=== PATIENT | female | born 1980 | race Caucasian/White ===

== ENCOUNTER 2019-12-09 11:36 | Emergency (ER) | payer BC, MEDICAID, SELFPAY ==
--- NOTE | ~2019-12-09 | XR_ITS ---
EXAMINATION: XR chest 2V EXAM DATE: 12/09/2019 12:17 INDICATION: Cough and wheezing. Low-grade fever. TECHNIQUE: Frontal and lateral projections of the chest obtained and reviewed. Comparison is made to prior examination from 03/01/2016. FINDINGS: The lungs are clear. There are no pleural effusions. The cardiomediastinal silhouette is within normal limits. There is no pneumothorax suspected. The bones and soft tissues are unremarkab le. There are cholecystectomy clips. IMPRESSION: Normal chest x-ray exam. Reviewed, dictated and finalized at location B. LITY ENGINEER IMPRESSION: Normal chest x-ray exam.
[2019-12-09 11:47] VITALS: BP 124/72; PULSE 118; RESP 20; TEMP 37.2; O2SAT 100
--- NOTE | 2019-12-09 12:01 | ED.GENADULT ---
HPI - General Adult General Chief complaint: Upper Respiratory Infection Stated complaint: congestion/cough Time Seen by Provider: 12/09/19 12:02 Source: patient and RN notes reviewed Mode of arrival: ambulatory Limitations: no limitations History of Present Illness HPI narrative: 39-year-old female presents with complaints of dry cough, congestion, wheezing, and low grade fever for the past 3 days. Cough is persistent, worse when she lies down. Intermittently productive green phlegm. Feels ill. Denies high fever, highest 100F, axilla with intermittent chills. Sudafed and Mucinex with little relief. Exacerbating factors consist of smoke exposure. No nausea, vomiting, and abdominal pain. Denies chest pain, dyspnea, coughing up blood, difficulty swallowing, jaw pain, dental pain, facial pain, foreign body sensation, and rash. Ngoc denies being , LMP 1 month ago and tubal ligation. Some parts of this dictation were generated by voice recognition software and may contain typographical and/or grammatical inaccuracies. Related Data Home Medications Medication Instructions Recorded Confirmed naproxen-pseudoephedrine [Sudafed tablet PO 12/09/19 Sinus 12Hr Pressr-Pain] Allergies Allergy/AdvReac Type Severity Reaction Status Date / Time No Known Allergies Allergy Verified 12/09/19 11:53 Review of Systems Review of Systems: Narrative: CONSTITUTIONAL: Complains of low-grade fever, chills. Denies sweats. EYES: Denies visual changes, redness, discharge. ENT: Complains of rhinorrhea, congestion. Denies sore throat, otalgia. CARDIOVASCULAR: Denies chest pain, palpitations, edema. RESPIRATORY: Denies dyspnea. Complains of wheezing, persistent dry cough, intermittent productive cough. GASTROINTESTINAL: Denies abdominal pain, nausea, vomiting, diarrhea. GENITOURINARY: Denies dysuria, hematuria, abnormal discharge. SKIN: SKIN: Denies rash or itching. MUSCULOSKELETAL: Denies acute back pain, joint pain, or myalgia. NEUROLOGIC: Denies numbness or focal weakness. PSYCHIATRIC: Denies anxiety or depression. [facility] Past Medical History Medical History (Updated 12/09/19 @ 12:53 by BENNY Orosco) No significant past medical history Surgical History Surgical History (Updated 12/09/19 @ 12:53 by BENNY Orosco) H/O section X4 History of cholecystectomy History of tubal ligation Family History Family History Father Hypertension Mother Family history of diabetes mellitus in first degree relative Hypertension Sibling Hypertension Other Diabetes mellitus Social History Social History (Updated 12/09/19 @ 12:54 by BENNY Orosco) Smoking status: Current every day smoker Second hand tobacco smoke exposure: No Alcohol intake: current Substance use: never Living arrangements: with family Gender identity (if verbalized by the patient): Female Comments At time of signature, agree with nurse past medical, surgical, social, and family history. There is no relevant family history pertinent to the presenting complaint. Exam Narrative: Exam Narrative: GENERAL: This is a well-nourished, well-developed patient, in no apparent distress. Talks in full sentences and ambulates with steady gait without dyspnea. HEAD: normocephalic, atraumatic. EYES: PERRL. Sclera clear/white. Vision is grossly intact. EARS: External ears normal, auditory canals clear and without drainage, TMs normal without perforation. Hearing grossly intact. NOSE: External nose normal with no obvious nasal discharge, nares with moderat redness and enlarged turbinates, no rhinorrhea. THROAT: Mucous membranes moist, posterior pharynx with PND, mild erythema, no exudate, and normal tonsils. No drainage, no concern for Peritonsillar abscess. No drooling, trismus, or neck swelling. NECK: Neck supple, non-tender without lymphadenopathy, mas
[2019-12-09 12:38] VITALS: PULSE 90
== END 2019-12-09 12:37 | disposition home or self-care (01) ==
PROVIDERS: Emergency Provider Nurse Practitioner Family; PCP Emergency Medicine
DX: J40 Bronchitis, not specified as acute or chronic (principal)
CPT/HCPCS: 71046; 99213; G0463

== ENCOUNTER 2020-08-15 08:24 | Outpatient (CLI) | payer BC, MEDICAID, SELFPAY ==
--- NOTE | ~2020-08-15 | MR_ITS ---
EXAMINATION: MR lumbar spine wo con DATE: 08/15/2020 09:38 INDICATION: Lumbago with sciatica. TECHNIQUE: Magnetic resonance imaging (MRI) of the lumbar spine was performed without intravenous con trast. Sequences included sagittal T2-weighted FSE, sagittal T2-weighted FS FSE, sagittal T1-weighted FSE, and axial T2-weighted FSE. COMPARISON: Lumbar spine radiographs 08/05/2019 FINDINGS: There is 13 degrees dextroscoliosis of thoracolumbar spine. Vertebral body heights and inte rvertebral disc heights are normal. The distal spinal cord signal intensity is normal. The conus medu llaris is at L1. The following disc levels are specifically discussed: L1-L2: The disc does not extend beyond the endplate margin. There is no facet joint osteoarthritis. T here is no neural foraminal stenosis. There is no central canal stenosis. L2-L3: The disc does not extend beyond the endplate margin. There is no facet joint osteoarthritis. T here is no neural foraminal stenosis. There is no central canal stenosis. L3-L4: The disc is mildly bulging. There is mild bilateral facet joint osteoarthritis. There is mild bilateral neural foraminal stenosis. There is no central canal stenosis. L4-L5: The disc is mildly bulging. There is mild bilateral facet joint osteoarthritis. There is mild bilateral neural foraminal stenosis. There is no central canal stenosis. L5-S1: The disc is bulging with superimposed left central extrusion. There is mild right facet joint osteoarthritis. There is mild left neural foraminal stenosis. There is mild central canal stenosis. IMPRESSION: 1. Mild lumbar spondylosis. Reviewed, dictated and finalized at location A. IMPRESSION: 1. Mild lumbar spondylosis.
== END 2020-08-15 08:25 | disposition home or self-care (01) ==
PROVIDERS: PCP Emergency Medicine; Visit Provider Emergency Medicine
DX: M54.42 Lumbago with sciatica, left side (principal); M47.896 Other spondylosis, lumbar region
CPT/HCPCS: 72148

== ENCOUNTER 2021-12-24 16:15 | Emergency (ER) | payer BC, MEDICAID, SELFPAY ==
[2021-12-24 16:22] VITALS: BP 109/79; PULSE 88; RESP 18; TEMP 36.5; O2SAT 100
--- NOTE | 2021-12-24 16:55 | ED.FEMALEGU ---
HPI - Female Genitourinary General Chief complaint: Urogenital-Female Stated complaint: Vaginal discharge Time Seen by Provider: 12/24/21 16:43 Source: patient and RN notes reviewed Mode of arrival: ambulatory Limitations: no limitations History of Present Illness HPI Narrative: Patient presents today with a 3-day history of burning pain with intercourse, malodorous brownish vaginal discharge. Denies any urinary symptoms. LMP was 1 week ago. Patient states that she knows she has bacterial vaginosis. States she has had it multiple times in the past and she has previously called her MANUFACTURER AGENT's office and has been called in Flagyl for this complaint. Her MANUFACTURER AGENT has retired and she cannot get in with his replacement for the next couple of months. She does not have any concerns for sexually transmitted infections and is not interested and getting tested. MD elicited complaint: vaginal discharge and other (Dyspareunia) Related Data Allergies Allergy/AdvReac Type Severity Reaction Status Date / Time No Known Allergies Allergy Verified 12/09/19 11:53 Review of Systems Review of Systems: CONSTITUTIONAL: Denies body aches, fever, chills, or sweats. EYES: Denies visual changes, redness, or discharge. ENT: Denies rhinorrhea, congestion, sore throat, or otalgia. CARDIOVASCULAR: Denies chest pain, palpitations, or edema. RESPIRATORY: Denies cough or dyspnea. GASTROINTESTINAL: Denies abdominal pain, nausea, vomiting, or diarrhea. GENITOURINARY: Denies dysuria or hematuria.+ Dyspareunia, vaginal discharge SKIN: Denies rash, itching, or wounds. MUSCULOSKELETAL: Denies back pain, joint pain, or myalgia. NEUROLOGIC: Denies headache, numbness, tingling, or weakness. PSYCH: Denies depression or anxiety. [facility] Past Medical History Medical History No significant past medical history Surgical History Surgical History H/O section X4 History of cholecystectomy History of tubal ligation Family History Family History Father Hypertension Mother Family history of diabetes mellitus in first degree relative Hypertension Sibling Hypertension Other Diabetes mellitus Social History Social History Smoking status: Current every day smoker Second hand tobacco smoke exposure: No Alcohol intake: current Substance use: never Gender identity (if verbalized by the patient): Female Comments At time of signature, I have reviewed and agree with nursing past medical, surgical, social and family history unless otherwise noted. Please see nursing chart for further information. There is no relevant family history pertinent to the presenting complaint Exam Narrative: GENERAL: Well-appearing, well-nourished, and in no acute distress. HEAD: Normocephalic, atraumatic. EYES: EOMI. No redness or drainage. Conjunctivae normal. ENT: Mucous membranes pink and moist. NECK: Normal AROM. CHEST: No respiratory distress. :Vaginal pineda appear normal. Moderate amount of thin old blood in vagina. Cervix normal. MUSCULOSKELETAL: No bony tenderness. EXTREMITIES: Normal range of motion. No edema. SKIN: Warm, dry, no rash. Capillary refill normal. Normal skin turgor. NEURO: No focal deficits. Alert and oriented x3. Gait steady. PSYCH: Normal affect. No signs of depression or anxiety. Course Course Emergency Course: Will treat patient with flagyl as she states her current symptoms are similar to previous episodes of bacterial vaginosis. States she gets yeast infections from the Flagyl, so will give her 1 tablet of Diflucan. I have given her a referral to a new MANUFACTURER AGENT for follow-up, especially if these medications do not help with her dyspareunia. Level of Care: Express Care Visit Vital Sign
== END 2021-12-24 17:08 | disposition home or self-care (01) ==
PROVIDERS: Emergency Provider Nurse Practitioner; PCP Obstetrics & Gynecology
DX: N89.8 Other specified noninflammatory disorders of vagina (principal); F17.200 Nicotine dependence, unspecified, uncomplicated
CPT/HCPCS: 81003; 99213; G0463

== ENCOUNTER 2022-04-04 19:18 | Emergency (ER) | payer BC, MEDICAID, SELFPAY ==
[2022-04-04 19:24] VITALS: BP 111/55; PULSE 79; RESP 16; TEMP 36.3; O2SAT 79
[2022-04-04 19:25] VITALS: O2SAT 99
--- NOTE | 2022-04-04 20:33 | ED.FEMALEGU ---
HPI - Female Genitourinary General Chief complaint: Urogenital-Female Stated complaint: VAGINAL BURNING Time Seen by Provider: 04/04/22 20:15 Source: patient, RN notes reviewed and old records reviewed Mode of arrival: ambulatory Limitations: no limitations History of Present Illness HPI Narrative: 41-year-old female who presents to [facility] with 1 week duration of vaginal burning with white thick vaginal discharge that is itchy. Patient reports that she has tried Monistat without any improvement in her symptoms. She denies any concern for STDs, denies any frequency or burning with urination, no urgency. Patient reports no fevers, chills, or sweats, denies any nausea, vomiting, or abdominal pain. Patient reports that she has been taking baths lately. MD elicited complaint: vaginal discharge and genital itching Onset (ago): week(s) (1) Vaginal discharge: white and thick/cheesy Related Data Allergies Allergy/AdvReac Type Severity Reaction Status Date / Time No Known Allergies Allergy Verified 04/04/22 19:39 Review of Systems Review of Systems: CONSTITUTIONAL: Denies fever, chills, or sweats. EYES: Denies visual changes, redness, or discharge. ENT: Denies rhinorrhea, congestion, sore throat, or otalgia. CARDIOVASCULAR: Denies chest pain, palpitations, or edema. RESPIRATORY: Denies cough or dyspnea. GASTROINTESTINAL: Denies abdominal pain, nausea, vomiting, or diarrhea. GENITOURINARY: Denies dysuria or hematuria.positive for genitourinary burning with white discharge SKIN: Denies rash or itching. MUSCULOSKELETAL: Denies back pain, joint pain, or myalgia. NEUROLOGIC: Denies headache, numbness, or weakness. PSYCHIATRIC: Denies anxiety or depression. [facility] Past Medical History Medical History (Updated 04/04/22 @ 20:46 by Leigh Ann Manriquez NP) No significant past medical history Vaginal yeast infection Surgical History Surgical History H/O section X4 History of cholecystectomy History of tubal ligation Family History Family History Father Hypertension Mother Family history of diabetes mellitus in first degree relative Hypertension Sibling Hypertension Other Diabetes mellitus Social History Social History Smoking status: Current every day smoker Second hand tobacco smoke exposure: No Alcohol intake: current Substance use: never Gender identity (if verbalized by the patient): Female Comments At time of signature, agree with nursing past medical, surgical, social and family history. There is no relevant family history pertinent to the presenting complaint Exam Narrative: GENERAL: Well-appearing, well-nourished, and in no acute distress. HEAD: Normocephalic, atraumatic. EYES: PERRLA and EOMI. ENT: Nares clear, no rhinorrhea or epistaxis. Mucous membranes moist.TM's normal with good light reflex, throat pink with no lesions or exudates, NECK: Supple.no lymphadenopathy CHEST: Clear to auscultation. No respiratory distress.SAO2 99 % on room air HEART: Regular rate and rhythm. No murmur heard. Normal peripheral pulses. ABDOMEN: Soft, nontender, nondistended, normal active bowel sounds.denies any abdominal pain or any CVA tenderness noted on exam, white thick itchy vaginal discharge, denies any urinary symptoms, past history of vaginal yeast infection EXTREMITIES: Normal range of motion. No edema. SKIN: Warm, dry, no rash. NEURO: No focal deficits. Alert and oriented x3. Course Course Level of Care: Express Care Visit Vital Signs Vital signs: Vital Signs Temperature 36.3 C L 04/04/22 19:24 Pulse Rate 79 04/04/22 19:24 Respiratory Rate 16 04/04/22 19:24 Blood Pressure 111/55 L 04/04/22 19:24 Pulse Oximetry 79 L 04/04/22 19:24 Temperature 36.3 C L 04/04/22 19:24 Pulse Rate 79 04/04/22 19:24
== END 2022-04-04 20:42 | disposition home or self-care (01) ==
PROVIDERS: Emergency Provider Registered Nurse
DX: B37.3 Candidiasis of vulva and vagina (principal); F17.200 Nicotine dependence, unspecified, uncomplicated
CPT/HCPCS: 99213; G0463

== ENCOUNTER 2022-08-10 13:54 | Emergency (ER) | payer BC, MEDICAID, SELFPAY ==
[2022-08-10 14:06] VITALS: BP 135/86; PULSE 99; RESP 16; TEMP 36.6; O2SAT 100
--- NOTE | 2022-08-10 14:37 | ED.GENADULT ---
HPI - General Adult General Chief complaint: Skin/Abscess/Foreign Body Stated complaint: RASH/MOUTH IS PURPLE/SOB/+ COVID History of Present Illness HPI narrative: 42 y/o female. PMHx Cigarette Smoker. Presents to [facility] today with acute complaints of non-productive cough, intermittent dyspnea, and rash post covid 1 week ago. Client reports to have tested Covid positive one week [employer]PER[employer]. -Continued cough, intermittent dyspnea. -No dizziness, chest pain, palpitations, edema. -No wheezing. -No hemoptysis. She reports a generalized rash to her upper and lower extremities, with associated pruritus. -No recent ATB or medication changes. -No open wounds, lesions, or discharge. Related Data Allergies Allergy/AdvReac Type Severity Reaction Status Date / Time No Known Allergies Allergy Verified 08/10/22 14:06 Review of Systems Review of Systems: CONSTITUTIONAL: Denies fever, chills, sweats. EYES: Denies visual changes, redness, discharge. ENT: + congestion. No sore throat, otalgia. CARDIOVASCULAR: Denies chest pain, palpitations, edema. RESPIRATORY: + dyspnea, cough. No wheezing. GASTROINTESTINAL: Denies abdominal pain, nausea, vomiting, diarrhea. GENITOURINARY: Denies dysuria, hematuria, abnormal discharge SKIN: + Extremity rash & itching. MUSCULOSKELETAL: Denies acute back pain, joint pain, or myalgia. NEUROLOGIC: Denies numbness, or focal weakness. PSYCHIATRIC: Denies anxiety or depression. [facility] Past Medical History Medical History No significant past medical history Vaginal yeast infection Surgical History Surgical History H/O section X4 History of cholecystectomy History of tubal ligation Family History Family History Father Hypertension Mother Family history of diabetes mellitus in first degree relative Hypertension Sibling Hypertension Other Diabetes mellitus Social History Social History Smoking status: Current every day smoker Second hand tobacco smoke exposure: No Alcohol intake: current Substance use: never Gender identity (if verbalized by the patient): Female Exam Narrative: GENERAL: This is a well-nourished, well-developed adult, in no apparent distress. HEAD: normocephalic, atraumatic. EYES: PERRL. Sclera clear/white. EARS: External ears normal, auditory canals clear and without drainage, TMs normal. NOSE: External nose normal. Positive Rhinorrhea, no obstruction, nares patent. THROAT: Mucous membranes moist, posterior pharynx is mildly erythematous. No exudates. Uvula midline. Palate soft. No lesions. NECK: Neck supple, non-tender without lymphadenopathy, masses or thyromegaly. CARDIOVASCULAR: Regular rate and rhythm without murmurs, gallops, or rubs. RESPIRATORY: Clear to auscultation. Breath sounds equal bilaterally. No wheezes, rales, or rhonchi. GASTROINTESTINAL: Abdomen soft, non-tender, nondistended. Bowel sounds are active. No guarding. SKIN: warm, intact with no suspicious lesions, good texture and turgor. Fine raised rash to bilateral upper arms and lower legs. Signs of superficial itching at site. No necrotic changes. No deep tissue disturbance or fluctuance. NEURO: Alert, active, and age appropriate. No focal neurologic deficits. EXTREMITIES: Negative. Course Course Level of Care: Express Care Visit Vital Signs Vital signs: Vital Signs Temperature 36.6 C 08/10/22 14:06 Pulse Rate 99 08/10/22 14:06 Respiratory Rate 16 08/10/22 14:06 Blood Pressure 135/86 08/10/22 14:06 Pulse Oximetry 100 08/10/22 14:06 Temperature 36.6 C 08/10/22 14:06 Pulse Rate 99 08/10/22 14:06 Respiratory Rate 16 08/10/22 14:06 Blood Pressure 135/86 08/10/22 14:06 Pulse Oximetry 100
== END 2022-08-10 14:39 | disposition home or self-care (01) ==
PROVIDERS: Emergency Provider Nurse Practitioner Adult Health; PCP Family Medicine
DX: B34.9 Viral infection, unspecified (principal); R21 Rash and other nonspecific skin eruption; F17.200 Nicotine dependence, unspecified, uncomplicated; Z86.16 Personal history of COVID-19
CPT/HCPCS: 99213; G0463

== ENCOUNTER 2022-12-25 17:58 | Emergency (ER) | payer BC, MEDICAID, SELFPAY ==
[2022-12-25 18:14] VITALS: BP 142/82; PULSE 102; RESP 16; TEMP 36.4; O2SAT 100
--- NOTE | 2022-12-25 18:34 | ED.ABDPAIN ---
HPI - Abdominal Pain General Chief Complaint: Abdominal Pain Stated Complaint: LOW ABD PAIN Time Seen by Provider: 12/25/22 18:35 Source: patient, RN notes reviewed and old records reviewed Mode of arrival: ambulatory Limitations: no limitations History of Present Illness HPI narrative: 42 year old female who presents to [facility] care with complaints of lower abdominal discomfort in supra pubic area at rest is a 2-3,with ambulation 6-7. Patient reports that she is also having some frequency of urination but does not burn. patient also states some clear vaginal discharge,denies ay itching or concerns fo STD's. Patient denies any fevers, chills or sweats, no nausea or vomiting or any CVA tenderness. MD elicited complaint: abdominal pain (lower suprapubic) Onset (ago): day(s) (today) Pain scale (0-10): 2 Quality: sharp (intermittent) Exacerbating factors: movement Treatments prior to arrival: other (none) Related Data Allergies Allergy/AdvReac Type Severity Reaction Status Date / Time No Known Allergies Allergy Verified 12/25/22 18:16 Review of Systems Review of Systems: CONSTITUTIONAL: Denies fever, chills, or sweats. CARDIOVASCULAR: Denies chest pain, palpitations, or edema. RESPIRATORY: Denies cough or dyspnea. GASTROINTESTINAL: Denies abdominal pain, nausea, vomiting, or diarrhea. GENITOURINARY: Reports dysuria,reports frequency, urgency. Denies flank pain or hematuria. SKIN: Denies rash or itching. MUSCULOSKELETAL: Denies back pain or myalgia. Denies CVA tenderness NEUROLOGIC: Denies headache All systems reviewed & are unremarkable except as noted in HPI and below PMFSH Past Medical History Medical History (Updated 12/26/22 @ 00:00 by Tyree Ambrosio) No significant past medical history Vaginal yeast infection Surgical History Surgical History (Updated 12/27/22 @ 16:06 by Leigh Ann Manriquez NP) H/O section X4 History of cholecystectomy History of tubal ligation Patient reports not sure if was actually done due complications during and was not on copy at doctors office when she went back for post op follow up Family History Family History Father Hypertension Mother Family history of diabetes mellitus in first degree relative Hypertension Sibling Hypertension Other Diabetes mellitus Social History Social History Smoking status: Current every day smoker Second hand tobacco smoke exposure: No Alcohol intake: current Substance use: never Living arrangements: with family Gender identity (if verbalized by the patient): Female Comments At time of signature, agree with nursing past medical, surgical, social and family history. There is no relevant family history pertinent to the presenting complaint Exam Narrative: GENERAL: Well-appearing, well-nourished, and in no acute distress. HEAD: Normocephalic, atraumatic. NECK: Supple.no lymphadenopathy CHEST: Clear to auscultation. No respiratory distress. HEART: Regular rate and rhythm. No murmur heard. Normal peripheral pulses. ABDOMEN: Soft,tender over suprapubic area nondistended, normal active bowel sounds. No CVA tenderness reports urinary frequency EXTREMITIES: Normal range of motion. No edema. SKIN: Warm, dry, no rash. NEURO: No focal deficits. Alert and oriented x3. Course Course Emergency Course: Patient is aware of diagnosis, understands and agrees to treatment plan.? Anticipatory guidance given.? Patient agrees to follow-up as directed and is aware of reasons to seek care at the emergency department. Portions of this record may have been created with voice recognition software Level of Care: Express Care Visit Vital Signs Vital signs: Vital Signs Temperature 36.4 C 12/25/22 18:14 Pulse Rate 102 H 12/25/22 18:14 Respiratory Rate 16 12/25/22 18:14 Blood Pressure 142/82 H 12/25/22 18
== END 2022-12-25 18:55 | disposition home or self-care (01) ==
PROVIDERS: Emergency Provider Registered Nurse
DX: R35.0 Frequency of micturition (principal); R30.0 Dysuria; R10.30 Lower abdominal pain, unspecified; F17.200 Nicotine dependence, unspecified, uncomplicated
CPT/HCPCS: 81003; 81025; 87086; 99213; G0463

== ENCOUNTER 2023-02-17 10:12 | Emergency (ER) | payer BC, MEDICAID, SELFPAY ==
--- NOTE | 2023-02-17 10:20 | ED.FEMALEGU ---
HPI - Female Genitourinary General Chief complaint: Urogenital-Female Stated complaint: abdormal color and smell of urine Time Seen by Provider: 02/17/23 10:22 Source: patient, RN notes reviewed and old records reviewed Mode of arrival: ambulatory Limitations: no limitations History of Present Illness HPI Narrative: 42-year-old female presents to the [facility] with 2 weeks abnormal color and foul smelling urine. denies any vaginal discharge, abdominal pain, nausea, vomiting. Denies fever. denies concern for STD or . Patient also states she has Concern for hair thinning and hair loss. has not contacted her primary care for either these concerns. Discussed with patient that we do not order lab work and that she would have to contact her the hair thinning. Urine dip and culture done. Related Data Allergies Allergy/AdvReac Type Severity Reaction Status Date / Time No Known Allergies Allergy Verified 12/25/22 18:16 Review of Systems Review of Systems: All systems reviewed & are unremarkable except as noted in HPI and below Constitutional: Constitutional: Reports no additional constitutional complaints Eyes: Eyes: Reports no additional eye complaints ENT: Reports system reviewed and no additional complaints, except as documented Cardiovascular: Cardiovascular: Reports no additional cardiovascular complaints, Denies chest pain and Denies dyspnea Respiratory: Respiratory: Reports no additional respiratory complaints, Denies chest congestion, Denies cough and Denies dyspnea Gastrointestinal: Gastrointestinal: Reports no additional gastrointestinal complaints, Denies abdominal pain, Denies nausea and Denies vomiting Genitourinary: Genitourinary: Reports as per HPI Musculoskeletal: Musculoskeletal: Reports no additional musculoskeletal complaints Integumentary/Breasts: Skin/Breast: Reports system reviewed and no additional complaints, except as docu Neurologic: Reports system reviewed and no additional complaints, except as documented Psychiatric: Psychiatric: Reports no additional psychiatric complaints Allergic/Immunologic: Allergic/Immunologic: Reports no additional allergic/immunologic complaints PMFSH Past Medical History Medical History No significant past medical history Vaginal yeast infection Surgical History Surgical History H/O section X4 History of cholecystectomy History of tubal ligation Patient reports not sure if was actually done due complications during and was not on copy at doctors office when she went back for post op follow up Family History Family History Father Hypertension Mother Family history of diabetes mellitus in first degree relative Hypertension Sibling Hypertension Other Diabetes mellitus Social History Social History Smoking status: Current every day smoker Second hand tobacco smoke exposure: No Alcohol intake: current Substance use: never Living arrangements: with family Gender identity (if verbalized by the patient): Female Comments At the time of my signature, I reviewed and agree with the nursing past medical, surgical, social, and family history. There is no relevant family history pertinent to the patient complaint. Exam Const: General: cooperative, healthy appearing, comfortable, no acute distress, well developed, alert and well nourished Nutritional Appearance: well nourished Orientation/consciousness: patient oriented x3 Limitations: no limitations HENMT: Head: normal to inspection Ears: hearing grossly normal bilaterally and external ears normal Face/Nose/Sinus: Normal external nose present, Normal nares present, Normal nasal mucous membranes and turbinates present and normal facial exam
[2023-02-17 10:21] VITALS: BP 91/62; PULSE 87; RESP 16; TEMP 36.5; O2SAT 98
== END 2023-02-17 10:51 | disposition home or self-care (01) ==
PROVIDERS: Emergency Provider Nurse Practitioner; PCP Family Medicine
DX: R82.90 Unspecified abnormal findings in urine (principal); F17.200 Nicotine dependence, unspecified, uncomplicated
CPT/HCPCS: 81003; 87077; 87086; 87186; 99213; G0463

== ENCOUNTER 2024-02-19 14:32 | Emergency (ER) | payer BC, MEDICAID, SELFPAY ==
[2024-02-19 15:06] VITALS: BP 123/72; PULSE 88; RESP 20; TEMP 37.2; O2SAT 100
--- NOTE | 2024-02-19 15:33 | ED.GENADULT ---
HPI - General Adult General Chief complaint: Urogenital-Female Stated complaint: Abdominal Pain Source: patient, RN notes reviewed and old records reviewed Mode of arrival: ambulatory Limitations: no limitations History of Present Illness HPI narrative: 43-year-old female presents to [facility] with complaints vaginal irritation, vaginal itching, pelvic pain, diarrhea, anxiety, depression this started a few weeks ago. Patient denies urinary symptoms. Patient states believe diarrhea is related to anxiety. Patient states has not been sexually active for 2 months but is okay with STD testing. Related Data Allergies Allergy/AdvReac Type Severity Reaction Status Date / Time No Known Allergies Allergy Verified 02/21/23 14:37 Review of Systems Constitutional: Constitutional: Reports no additional constitutional complaints, Denies body ache(s), Denies chills, Denies fatigue, Denies fever(s) and Denies headache(s) Eyes: Eyes: Reports no additional eye complaints and Denies blurry vision ENT: Reports system reviewed and no additional complaints, except as documented, Denies vertigo, Denies dizziness, Denies ear discharge, Denies otalgia, Denies facial pain, Denies headache(s), Denies nasal congestion, Denies nasal discharge, Denies sinus pain, Denies sinus pressure and Denies sore throat Cardiovascular: Cardiovascular: Reports no additional cardiovascular complaints, Denies chest pain, Denies chest pain at rest, Denies rapid heart rate and Denies dyspnea Respiratory: Respiratory: Reports no additional respiratory complaints, Denies chest congestion, Denies cough, Denies pain on inspiration, Denies pain with cough and Denies dyspnea Gastrointestinal: Gastrointestinal: Denies abdominal pain, Reports diarrhea, Denies nausea and Denies vomiting Genitourinary: Genitourinary: Reports vaginal discharge and Reports vaginal pruritus Integumentary/Breasts: Skin/Breast: Denies rash Neurologic: Reports system reviewed and no additional complaints, except as documented, Denies vertigo, Denies dizziness and Denies headache(s) Psychiatric: Psychiatric: Reports anxiety and Reports depression Endocrine: Endocrine: Denies fatigue PMFSH Past Medical History Medical History Chest pain in adult Chronic low back pain Heart palpitations Iron deficiency anemia Nicotine dependence, cigarettes, uncomplicated No significant past medical history Other chronic pain Psychophysiological insomnia Strain of muscle, fascia and tendon at neck level, initial encounter Vaginal yeast infection Surgical History Surgical History H/O section X4 History of cholecystectomy History of tubal ligation Patient reports not sure if was actually done due complications during and was not on copy at doctors office when she went back for post op follow up Family History Family History Father Hypertension Mother Family history of diabetes mellitus in first degree relative Hypertension Sibling Hypertension Other Diabetes mellitus Social History Social History (Updated 02/25/23 @ 17:15 by Jcaquelyn Gutierrez MD) Social History: Smoking packs per day: 1 Smoking cigarettes per day: 20.0 Years smoked: 4 Smoking pack-years: 4.00 Smoking status: Current every day smoker Tobacco type: cigarettes Second hand tobacco smoke exposure: No Alcohol intake: current Alcohol use details: Occasionally Substance use: never Substance use type: does not use Lack of Transportation: No Lack of Food: Never True Current Housing: I Have Housing Concerned About Future Housing: No Difficulty Paying Gas/Electric Bills: No Difficulty Paying for Meds: No Currently Unemployed: YES Education: Decline to Answer Difficulty w/ Childcare or Family Care: No Li
[2024-02-19 21:59] LABS: Trichomonas Vag PCR NOT DETECTED (NOT DETECTE)
[2024-02-19 22:21] LABS: Chlamydia trachomatis NOT DETECTED (NOT DETECTE); Neisseria gonorrhoeae PCR NOT DETECTED (NOT DETECTE)
== END 2024-02-19 15:50 | disposition home or self-care (01) ==
PROVIDERS: Emergency Provider Registered Nurse
DX: B37.31 Acute candidiasis of vulva and vagina (principal); R19.7 Diarrhea, unspecified; F17.210 Nicotine dependence, cigarettes, uncomplicated
CPT/HCPCS: 81003; 87491; 87591; 87661; 99214; G0463

== ENCOUNTER 2025-07-04 09:28 | Outpatient (CLI) | payer BC, MEDICAID, SELFPAY ==
--- NOTE | ~2025-07-04 | MM_ITS ---
EXAMINATION: MM screening new BI w niko HISTORY: Screening TECHNIQUE: Craniocaudal and mediolateral oblique 3-D tomosynthesis images were obtained and synthetic 2-D images were generated. CAD analysis was submitted and interpreted. COMPARISON: No prior mammogram is available for comparison at this institution. BREAST PARENCHYMAL COMPOSITION: The breasts are extremely dense, which lowers the sensitivity of mammography. FINDINGS: There is no evidence of suspicious mass, calcification, or architectural distortion to suggest malignancy in either breast. Asymmetry at the level the posterior nipple line, posterior depth, seen in the left CC projection. Asymmetry in the upper left breast, middle depth, seen in the left MLO projection. Focal asymmetry in the right breast at the 12:00 position middle to posterior depth. IMPRESSION: 1. Asymmetry at the level the posterior nipple line, posterior depth, seen in the left CC projection. Asymmetry in the upper left breast, middle depth, seen in the left MLO projection. The study is incomplete. A diagnostic left breast mammogram and a diagnostic left breast ultrasound is recommended. 2. Focal asymmetry in the right breast at the 12:00 position. The study is incomplete. A diagnostic right breast mammogram and a diagnostic right breast ultrasound is recommended BI-RADS 0: Incomplete-Need additional imaging evaluation. Reviewed, dictated and finalized at location Q. IMPRESSION: 1. Asymmetry at the level the posterior nipple line, posterior depth, seen in t he left CC projection. Asymmetry in the upper left breast, middle depth, seen i n the left MLO projection. The study is incomplete. A diagnostic left breast ma mmogram and a diagnostic left breast ultrasound is recommended. 2. Focal asymmetry in the right breast at the 12:00 position. The study is inco mplete. A diagnostic right breast mammogram and a diagnostic right breast ultra sound is recommended BI-RADS 0: Incomplete-Need additional imaging evaluation.
== END 2025-07-04 09:29 | disposition home or self-care (01) ==
LOC: ANHFOHIMG 09:30
PROVIDERS: PCP Family Medicine; Visit Provider Student in an Organized Health Care Education/Training Program
DX: Z12.31 Encounter for screening mammogram for malignant neoplasm of breast (principal); R92.8 Other abnormal and inconclusive findings on diagnostic imaging of breast
CPT/HCPCS: 77063; 77067

== ENCOUNTER 2025-09-16 11:59 | Outpatient (CLI) | payer BC, MEDICAID, SELFPAY ==
[2025-09-16 12:55] LABS: Beta HCG Quantitative < 2.39 mIU/ML
[2025-09-16 13:10] LABS: Thyroid Stimulating Hormone 0.770 uIU/mL (0.465-4.680)
[2025-09-17 07:09] LABS: FSH 84.7 mIU/mL (.)
[2025-09-19 18:08] LABS: Estradiol, Sensitive 2.8 pg/mL (.)
== END 2025-09-16 12:00 | disposition home or self-care (01) ==
LOC: ANHLAB 12:02
PROVIDERS: PCP Family Medicine; Visit Provider Student in an Organized Health Care Education/Training Program
DX: N91.2 Amenorrhea, unspecified (principal); R10.20 Pelvic and perineal pain unspecified side
CPT/HCPCS: 36415; 82670; 83001; 84146; 84443; 84702